=== PATIENT | female | born 1945 | race Caucasian/White ===

== ENCOUNTER 2016-12-08 12:17 | Emergency (ER) | payer MEDICARE, OTHER ==
[~2016-12-08] VITALS: Ht 162.6 cm; Wt 68.6 kg
[~2016-12-08 12:17] MED LIST: APIX2.5T PO; APIX5TAB PO; CIPR500T4 PO; DICY10CA60 PO; DOXA8TAB65 PO; ESCI20TA; ESOM20CA; IMO2 PO; LIPA1CAP6; METO25TA7 PO; NITR0.4T6; OMEG100011 PO; POTA8TAB2; RAMI5CAP46 PO; ROSU20TA; VALS1TAB82 PO; ZOLP10TA
[2016-12-08 12:33] VITALS: Ht 162.6 cm; Wt 68.6 kg
[2016-12-08] MEDS ORDERED: ACETAMINOPHEN 500 MG TAB PO STA (13:21)
--- NOTE | 2016-12-08 13:52 | RADRPT ---
PROCEDURE: XR Chest. CLINICAL INDICATION: Cough TECHNIQUE: AP view of the chest was performed. COMPARISON: July 14, 2015, October 09, 2013 FINDINGS: Mild cardiomegaly and right lower lung field atelectasis appear stable. No acute infiltrate or find ings of fluid overload. No signs of pleural fluid or pneumothorax are seen. The osseous structures a nd soft tissues are unremarkable. IMPRESSION: No evidence for active cardiopulmonary disease. Stable mild cardiomegaly and right lower lung field linear atelectasis. Overall, no significant interval change. RPTAT: QQ .Haylie Mccollum MD, Date Time Electronically viewed and signed by .Haylie Mccollum MD, MD on 12/08/2016 13:51 .F/
[2016-12-08 14:10] LABS: ADD SCAN DIFF NO
--- NOTE | 2016-12-08 14:11 | ERD ---
ER Documentation Chief Complaint Date/Time DATE: 12/08/16 TIME: 14:10 Chief Complaint cough x month; fever; chest wall pain; HPI This is a 71-year-old female who presents to the emergency department today complaining of cough for 1 month. States she has intermittent fevers and feels short of breath. Patient states that from November 15 of November 20 she took azithromycin, Dulera, prednisone and fluconazole from her primary care physician. Patient states that she has multiple medical problems. Denies any sore throat or earache or chest pain ROS All systems reviewed and are negative except as per history of present illness. Medications Home Meds Active Scripts Benzonatate* (Tessalon Perle*) 100 Mg Capsule, 100 MG PO Q8H Y for COUGH for 5 Days, CAP Prov:ANNALISA OLVERA PA-C 12/08/16 Cetirizine Hcl* (Zyrtec*) 10 Mg Capsule, 10 MG PO DAILY, #10 TAB.CHEW Prov:ANNALISA OLVERA PA-C 12/08/16 Doxazosin Mesylate* (Doxazosin Mesylate*) 8 Mg Tablet, 4 MG PO HS, #30 TAB Prov:ROB MARTINEZ MD 07/18/15 Ciprofloxacin Hcl* (Ciprofloxacin Hcl*) 500 Mg Tablet, 500 MG PO BID for urine infection for 5 Days, TAB Prov:ROB MARTINEZ MD 07/18/15 Reported Medications Dicyclomine Hcl* (Bentyl*) 10 Mg Capsule, 10 MG PO BID, CAP 07/15/15 Apixaban* (Eliquis*) 5 Mg Tablet, 5 MG PO AM, TAB 07/15/15 Apixaban* (Eliquis*) 2.5 Mg Tablet, 2.5 MG PO AC DINNER, TAB 07/15/15 Loperamide Hcl* (Loperamide Hcl*) 2 Mg Cap, 2 MG PO, CAP 01/18/15 Metoprolol Succinate* (Toprol XL*) 25 Mg Tab.sr.24h, 25 MG PO DAILY, TAB 01/18/15 Valsartan-Hydrochlorothiazide (Valsartan-HCTZ) 320-25 Mg Tablet, 1 TAB PO DAILY , TAB 01/18/15 Ramipril (Ramipril) 5 Mg Capsule, 5 MG PO BID, CAP 01/18/15 Story-3 Fatty Acids/Fish Oil* (Fish Oil *) 1,000 Mg Capsule, 1000 MG PO BID, CAP 01/18/15 Zolpidem Tartrate* (Ambien*) 10 Mg Tablet 10/09/13 Nitroglycerin* (Nitroglycerin* SL) 0.4 Mg Tab.subl 10/09/13 Potassium Chloride* (Klor-Con*) 8 Meq Tablet.sa, DAILY 10/09/13 Qbpgqj-Hhfxweck-Nmnptyu* (Creon DR* 24,000) 1 Each Capsule.dr, TID 10/09/13 Rosuvastatin Calcium* (Crestor*) 20 Mg Tablet 10/09/13 Escitalopram Oxalate* (Lexapro*) 20 Mg Tablet, DAILY 10/09/13 Esomeprazole Mag Trihydrate (Nexium) 20 Mg Capsule.dr, 40 MG DAILY 10/09/13 Allergies Allergies: Coded Allergies: No Known Allergy (Unverified , 07/18/15) PMhx/Soc History of Surgery: Yes (Gallbladder, Hysterectomy, Appendix and Hernia repai) Anesthesia Reaction: No Hx Neurological Disorder: No Hx Respiratory Disorders: Yes (Bronchitis) Hx Cardiac Disorders: Yes (Htn, Afib, Hypercholestoremia.) Hx Psychiatric Problems: No Hx Miscellaneous Medical Probl: No Hx Alcohol Use: No Hx Substance Use: No Hx Tobacco Use: No Physical Exam Vitals Vital Signs Date Time Temp Pulse Resp B/P Pulse Ox O2 Delivery O2 Flow Rate FiO2 12/08/16 12:33 100.8 95 19 127/66 95 Physical Exam Const: NAD Head: Atraumatic Eyes: Normal Conjunctiva ENT: Normal External Ears, Nose and Mouth. Neck: Full range of motion..~ No meningismus. Resp: Clear to auscultation bilaterally. No absent breath sounds. No wheezing. Cardio: Regular rate and rhythm, no murmurs Abd: Soft, non tender, non distended. Normal bowel sounds Skin: No petechiae or rashes Back: No midline or flank tenderness Ext: No cyanosis, or edema. No calf tenderness. No erythema or warmth. Neur: Awake and alert Psych: Normal Mood and Affect Result Diagram: 12/08/16 1400 12/08/16 1321 Results 24 hrs Laboratory Tests Test 12/08/16 13:21 2/24/17 14:00 Alanine Aminotransferase (ALT/SGPT) 18IU/L Albumin 4.3g/dl Albumin/Globulin Ratio 1.43 Alkaline Phosphatase 156IU/L Anion Gap 17 Aspartate Amino Transf (AST/SGOT) 21IU/L Blood Urea Nitrogen 14mg/dl Calcium Level 9.8mg/dl Carbon Dioxide Level 29mmol/L Chloride Level 103mmol/L Creatinine 0.66mg/dl Direct Bilirubin 0.00mg/dl Globulin 3.00g/dl Glucose Level 121mg/dl Indirect Bilirubin 3.1mg/dl Potassium Level 3.9mmol/L Sodium Level 145mmol/L Total Bilirubin 3.1mg/dl Total Protein 7.3g/dl Troponin I < 0.010ng/ml Activated Partial Thromboplast Time 33.7Sec Basophils # 0.010^3/ul Basophils % 0.3% Eosinophils # 0.110^3/ul Eosinophils % 0.5% Hematocrit 38.3% Hemoglobin 12.7g/dl INR International Normalized Ratio 1.36 Lymphocytes # 0.910^3/ul Lymphocytes % 7.2% Mean Corpuscular Hemoglobin 28.0pg Mean Corpuscular Hemoglobin Concent 33.2g/dl Mean Corpuscular Volume 84.5fl Mean Platelet Volume 11.3fl Monocytes # 0.910^3/ul Monocytes % 6.7% Neutrophils # 11.010^3/ul Neutrophils % 84.8% Nucleated Red Blood Cells # 0.010^3/ul Nucleated Red Blood Cells % 0.0/100WBC Platelet Count 96010^3/UL Prothrombin Time 16.8Sec Prothrombin Time Ratio 1.3 Red Blood Count 4.5310^6/ul Red Cell Distribution Width 14.5% White Blood Count 13.010^3/ul Current Medications Medications (Trade) Dose Ordered Sig/Sandhya Route PRN Reason Start Time Stop Time Status Last Admin Dose Admin Acetaminophen (Tylenol Tab) 500 mg ONCE STAT PO 12/08/16 13:21 12/08/16 13:26 DC 12/08/16 13:38 DIAGNOSTIC IMAGING REPORT Patient: MACEY CULLEN : 1945 Age: 71 Sex: F MR #: [id number] DOS: 12/08/16 0000 Ordering MD: ANNALISA OLVERA PA-C Location: [facility] Room/Bed: PROCEDURE: XR Chest. CLINICAL INDICATION: Cough TECHNIQUE: AP view of the chest was performed. COMPARISON: July 14, 2015, October 09, 2013 FINDINGS: Mild cardiomegaly and right lower lung field atelectasis appear stable. No acute infiltrate or findings of fluid overload. No signs of pleural fluid or pneumothorax are seen. The osseous structures and soft tissues are unremarkable. IMPRESSION: No evidence for active cardiopulmonary disease. Stable mild cardiomegaly and right lower lung field linear atelectasis. Overall, no significant interval change. RPTAT: QQ .Haylie Mccollum MD, MD Date Time Electronically viewed and signed by .Haylie Mccollum MD, MD on 12/08/2016 13:51 .F/ CC: ANNALISA OLVERA PA-C RUN DATE: 12/08/16 [facility] PAGE 1 RUN TIME: [id number] [place] [address] Siddhartha Dumont M.D. American Sign Language Interpreter WENDY#: [id number] Name: MACEY CULLEN Age/Sex: 71/F Attend Dr: CHARLENE GOLDBERG MD Acct: [id number] MR# : [id number] : 1945 Location: [facility] Admit: 12/08/16 Specimen: [id number] Status: Complete Berto: 12/08/16-1400 Rcvd: 12/08-1405 Source: [email or web address] Sp Descrip: Procedure Result Microbiology INFLUENZA A & B BY EIA Final INFLU A&B BY EIA INFLUENZA A NEGATIVE (Ref Range Neg) INFLUENZA B NEGATIVE (Ref Range Neg) ................................................................................ ............ Flags: Critical Hi = *H Critical Lo = *L Microbiology Abnormal = * Abnormal Hi = H Abnormal Lo = L Blood Bank Abnormal = * Susceptability Flags: S = Sensitive R = Resistant I = Intermediate END OF REPORT Procedures/MDM This is a 71-year-old female who presents to the emergency department today complaining of cough for the past week. Patient had a mildly elevated temperature here in the emergency department. She was not tachycardic however her oxygen saturation was 95%. I did obtain an EKG, chest x-ray, influenza swab and laboratory work as well as patient is on multiple medications for hypertension, Eliquis and other comorbidities. Chest x-ray shows no evidence for active cardiopulmonary disease. There is stable mild cardiomegaly and right lower lung field linear atelectasis. Overall no significant interval change. There is no signs of pleural effusion or pneumothorax seen. Low suspicion for pneumonia, PE, abscess, pneumothorax. EKG read and interpreted by Dr. Thorne rate [address] elevation. No QT prolongation. Low suspicion for acute [place], PE, pericarditis. Laboratory work shows an elevated white blood cell count. She is not anemic. Platelets are within normal limits. Sodium is mildly elevated otherwise electrolytes are within normal limits. Glucose is within normal limits. Liver function is within normal limits per alk phos is elevated. Troponin is negative PT is elevated otherwise INR is within normal limits. Influenza A and B is negative Patient has chronic cough of uncertain cause. Patient did indicate that her cough is oftentimes worse at night and this may be allergy related. I will give the patient a prescription for Zyrtec however I have explained to the patient that she takes multiple medications and she needs to follow-up with her primary care physician to see if whether it is beneficial for her to continue taking it or not. Patient was also given Tessalon Perles. Also given the patient a list of resources for pulmonology specialist. Discussed the patient with Dr. Thorne and feels the patient is stable for discharge and outpatient management and is in agreement with the plan. Departure Diagnosis: Primary Impression: Cough Condition: ANNALISA Zimmerman PA-C Dec 08, 2016 14:11
[2016-12-08 14:13] LABS: BASOPHILS % 0.3 % (0.0-2.0); EOSINOPHILS # 0.1 10^3/ul (0.0-0.5); EOSINOPHILS % 0.5 % (0.0-7.0); HEMATOCRIT 38.3 % (37.0-47.0); HEMOGLOBIN 12.7 g/dl (12.0-16.0); LYMPHOCYTES # 0.9 10^3/ul (0.8-2.9); LYMPHOCYTES % 7.2 % (15.0-51.0); MEAN CORPUSCULAR HGB CONC 33.2 g/dl (32.0-37.0); MEAN CORPUSCULAR VOLUME 84.5 fl (82.0-101.0); MEAN PLATELET VOLUME 11.3 fl (7.4-10.4); MONOCYTE # 0.9 10^3/ul (0.3-0.9); MONOCYTES % 6.7 % (0.0-11.0); NEUTROPHILS % 84.8 % (39.0-77.0); PLATELET COUNT 192 10^3/UL (140-415); RED BLOOD COUNT 4.53 10^6/ul (4.20-5.40); RED CELL DISTRIBUTION WIDTH 14.5 % (11.5-14.5)
[2016-12-08 14:23] LABS: INR 1.36; PROTIME 16.8 Sec (12.2-14.2); PT RATIO 1.3
[2016-12-08 14:24] LABS: PARTIAL THROMBOPLASTIN TIME 33.7 Sec (25.0-35.0)
[2016-12-08 14:30] LABS: ALBUMIN 4.3 g/dl (3.3-4.9); CHLORIDE 103 mmol/L (97-110); SODIUM 145 mmol/L (135-144)
[2016-12-08 14:31] LABS: POTASSIUM 3.9 mmol/L (3.5-5.1)
[2016-12-08 14:33] LABS: ALANINE AMINOTRANSFERASE 18 IU/L (13-69); ALBUMIN/GLOBULIN RATIO 1.43; ALKALINE PHOSPHATASE 156 IU/L (42-121); ANION GAP 17 (8-16); ASPARTATE AMINO TRANSFERASE 21 IU/L (15-46); BILIRUBIN,INDIRECT 3.1 mg/dl (0-1.1); BILIRUBIN,TOTAL 3.1 mg/dl (0.2-1.3); BLOOD UREA NITROGEN 14 mg/dl (7-20); CALCIUM 9.8 mg/dl (8.4-10.2); CARBON DIOXIDE 29 mmol/L (21-31); CREATININE 0.66 mg/dl (0.44-1.00); GLUCOSE 121 mg/dl (70-220); TOTAL PROTEIN 7.3 g/dl (6.1-8.1)
[2016-12-08 14:54] LABS: TROPONIN-I < 0.010 ng/ml (0.00-0.12)
[2016-12-08] MEDS ORDERED: BENZ100C70 PO (15:31)
[2016-12-08] MEDS ORDERED: CETI10CA PO (15:31)
== END 2016-12-08 15:45 | disposition home or self-care (01) ==
LOC: FTE 12:17
DX: R05 Cough (principal); I10 Essential (primary) hypertension; R06.02 Shortness of breath
CPT/HCPCS: 36415; 71010; 80053; 84484; 85025; 85610; 85730; 87400

== ENCOUNTER → 2018-07-05 | Outpatient (CLI) | END | disposition home or self-care (01) ==